=== PATIENT | male | born 1990 | race Two or more races ===

== ENCOUNTER 2018-02-05 07:58 | Emergency (ER) | payer SELFPAY ==
[2018-02-05 08:06] VITALS: BP 107/59; PULSE 57; TEMP 98.9; BMI 23.3
[2018-02-05] MEDS ORDERED: MECLIZINE HCL 25 MG TABLET (FP) PO ONE (08:52)
[2018-02-05] MEDS ORDERED: MECLIZINE HCL 25 MG TABLET (FP) ONE (09:01)
[2018-02-05 09:04] LABS: BASO % 0.8 % (0-2.0); EOS % 5.1 % (0-4.5); HEMATOCRIT 43.4 % (35.4-49); LYMPH % 35.7 % (8-40); MCH 29.6 pg (25.7-33.7); MCHC 34.6 g/dl (32.0-35.9); MEAN CELL VOLUME 85.8 fl (80-96); MEAN PLT VOLUME 7.9 fl (7.5-11.1); MONO % 8.4 % (3.8-10.2); PLATELET COUNT 213 K/MM3 (134-434); RBC 5.06 M/mm3 (4.00-5.60); RDW 13.5 % (11.9-15.9)
--- NOTE | 2018-02-05 09:21 | PDOC ---
History of Present Illness - General Chief Complaint: Headache Stated Complaint: DIZZINESS/HEAD PRESSURE Time Seen by Provider: 02/05/18 08:51 History Source: Patient - History of Present Illness Associated Symptoms: denies: fever/chills, headaches, nausea/vomiting, seizure, weakness Past History - Past Medical History Allergies/Adverse Reactions: Allergies Allergy/AdvReac Type Severity Reaction Status Date / Time No Known Allergies Allergy Verified 02/05/18 08:02 Home Medications: Ambulatory Orders Meclizine HCl 25 mg PO Q8H #15 tablet 02/05/18 COPD: No DVT: No Dementia: No Psychiatric Problems: Yes (anxiety) - Immunization History Immunization Up to Date: Yes - Suicide/Smoking/Psychosocial Hx Smoking History: Never smoked Information on smoking cessation initiated: No Hx Alcohol Use: No Drug/Substance Use Hx: No Substance Use Type: None Review of Systems - Review of Systems Constitutional: No: Chills, Fever HEENTM: No: Blurred Vision Neurological: Yes: Dizziness. No: Headache, Numbness, Tingling, Weakness *Physical Exam - Vital Signs Last Vital Signs Temp Pulse Resp BP Pulse Ox 98.9 F 57 L 16 107/59 98 02/05/18 08:02 02/05/18 08:02 02/05/18 08:02 02/05/18 08:02 02/05/18 08:02 - Physical Exam General Appearance: Yes: Appropriately Dressed. No: Apparent Distress HEENT: positive: Normal Voice Neck: positive: Supple Respiratory/Chest: positive: Lungs Clear, Normal Breath Sounds. negative: Respiratory Distress Cardiovascular: positive: Regular Rate, S1, S2 Integumentary: positive: Dry, Warm Neurologic: positive: model maker scale II-XII NML intact (no nystagmus, no drift, no ataxia, She intact), Fully Oriented, Alert, Normal Mood/Affect, Motor Strength 5/5, Finger to Nose. negative: Disoriented ED Treatment Course - LABORATORY CBC & Chemistry Diagram: 02/05/18 09:00 02/05/18 09:00 - ADDITIONAL ORDERS Additional order review: 02/05/18 09:00 RBC 5.06 MCV 85.8 MCHC 34.6 RDW 13.5 MPV 7.9 Neutrophils % 50.0 Lymphocytes % 35.7 Monocytes % 8.4 Eosinophils % 5.1 H Basophils % 0.8 - Medications Given in the ED: ED Medications Discontinued Medications Generic Name Dose Route Start Last Admin Trade Name Juan PRN Reason Stop Dose Admin Meclizine HCl 25 mg 02/05/18 08:52 02/05/18 09:02 Antivert - PO 02/05/18 08:53 25 mg ONCE ONE Administration Medical Decision Making - Medical Decision Making 02/05/18 09:18 27-year-old male, no significant history here with dizziness. Per patient develop intense spinning sensation with head movement and when changing positions that has been intermittent 2 weeks. No headache, visual changes, nausea, vomiting, tinnitus, focal weakness, chest pain or shortness of breath. No recent URI. No history of similar episode. No new drugs or other inciting agents. No sig family history See exam Possible benign vertigo Stable and alert w/ no neuro deficit -labs -meclizine -reassess 02/05/18 10:12 Labs unremarkable. Patient reports feeling better with meclizine. States he was able to walk to his car without feeling dizzy. As per discussion with Dr. Ruvalcaba will contact Dr. Spain of neurology for further recommendations/follow up 02/05/18 10:[address] Spain, who took patient's information and states he will be calling patient for an appointment in the near future. Patient feels comfortable with plan and feels well enough to be discharged. Rx for small dose of meclizine given per discussion with neurology *DC/Admit/Observation/Transfer Diagnosis at time of Disposition: Dizziness - Discharge Dispostion Disposition: HOME Condition at time of disposition: Improved - Prescriptions Prescriptions: Meclizine HCl 25 mg PO Q8H #15 tablet - Referrals Referrals: Maria Isabel Escobar [Primary Care Provider] - Cheikh Spain MD [Staff Physician] - - Patient Instructions Printed Discharge Instructions: Vertigo Additional Instructions: The cause of your dizziness is unclear at this time and you will need further evaluation by a neurologist. Dr. Spain, who is a neurologist here at [facility], will call you in the next several days to schedule an appointment. In the meantime, take meclizine as directed. If symptoms worsen, return to the ED - Post Discharge Activity
[2018-02-05 09:35] LABS: URINE APPEARANCE CLEAR; URINE BILIRUBIN NEGATIVE (<2.0 mg/dL); URINE COLOR LTYELLOW; URINE GLUCOSE (UA) NEGATIVE (NEGATIVE); URINE KETONE NEGATIVE (NEGATIVE); URINE LEUK ESTERASE NEGATIVE (NEGATIVE); URINE NITRITE NEGATIVE (NEGATIVE); URINE PROTEIN NEGATIVE (NEGATIVE); URINE UROBILINOGEN NEGATIVE mg/dL (0.2-1.0)
[2018-02-05 09:39] LABS: CHLORIDE 109 mmol/L (98-107); POTASSIUM 4.5 mmol/L (3.5-5.1); SODIUM 141 mmol/L (136-145)
[2018-02-05 09:53] LABS: ALBUMIN 4.2 g/dl (3.4-5.0); ALK PHOS 60 U/L (45-117); ANION GAP 9 (8-16); BILIRUBIN,TOTAL 0.3 mg/dL (0.2-1.0); BLOOD UREA NITROGEN 11 mg/dL (7-18); CALCIUM 8.9 mg/dL (8.5-10.1); CO2 23 mmol/L (21-32); CREATININE 0.9 mg/dL (0.7-1.3); GLUCOSE,RANDOM 117 mg/dL (74-106); SGOT/AST 15 U/L (15-37); SGPT/ALT 30 U/L (12-78); TOT PROT 7.4 g/dl (6.4-8.2)
== END 2018-02-05 10:40 | disposition home or self-care (01) ==
LOC: JERFT 07:58
DX: R42 Dizziness and giddiness (principal)
CPT/HCPCS: 36415; 80053; 81003; 85025; 99281-25

== ENCOUNTER 2018-03-22 07:47 | Emergency (ER) | payer OTHER ==
[2018-03-22 08:17] VITALS: BMI 23.8
[2018-03-22] MEDS ORDERED: SODIUM CHLORIDE 1,000 ML IV ONE (09:28)
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
[2018-03-22 09:46] LABS: BASO % 1.1 % (0-2.0); EOS % 5.1 % (0-4.5); HEMOGLOBIN 15.1 GM/dL (11.7-16.9); LYMPH % 33.4 % (8-40); MCH 28.9 pg (25.7-33.7); MCHC 33.4 g/dl (32.0-35.9); MEAN CELL VOLUME 86.4 fl (80-96); MEAN PLT VOLUME 8.2 fl (7.5-11.1); MONO % 7.9 % (3.8-10.2); NEUT % 52.5 % (42.8-82.8); PLATELET COUNT 218 K/MM3 (134-434); RBC 5.21 M/mm3 (4.00-5.60); RDW 13.8 % (11.9-15.9); WHITE BLOOD COUNT 5.7 K/mm3 (4.0-10.0)
[2018-03-22 10:00] LABS: URINE APPEARANCE CLEAR; URINE BILIRUBIN NEGATIVE (<2.0 mg/dL); URINE COLOR YELLOW; URINE GLUCOSE (UA) NEGATIVE (NEGATIVE); URINE KETONE NEGATIVE (NEGATIVE); URINE LEUK ESTERASE NEGATIVE (NEGATIVE); URINE NITRITE NEGATIVE (NEGATIVE); URINE PROTEIN NEGATIVE (NEGATIVE)
[2018-03-22 11:28] VITALS: BP 121/72; PULSE 60; TEMP 98.3
== END 2018-03-22 11:38 | disposition home or self-care (01) ==
LOC: JER 07:47
PROC: 3E0337Z Introduction of Electrolytic and Water Balance Substance into Peripheral Vein, Percutaneous Approach (ICD-10-PCS; principal; 2018-03-22)
DX: R19.8 Other specified symptoms and signs involving the digestive system and abdomen (principal); J45.909 Unspecified asthma, uncomplicated; F41.9 Anxiety disorder, unspecified
CPT/HCPCS: 36415; 81003; 85025; 99282-25; J7030

== ENCOUNTER → 2018-07-16 | Emergency (ER) | payer OTHER ==
[~2018-07-16] MED LIST: CYCLOBENZAPRINE HCL 10 MG TABLET (FP) ONE; CYCLOBENZAPRINE HCL 10 MG TABLET (FP) PO ONE; CYCLOBENZAPRINE HCL 5 MG TABLET PO ONE; KETOROLAC TROMETHAMINE 30 MG/1 ML VIAL IM ONE; KETOROLAC TROMETHAMINE 30 MG/1 ML VIAL ONE
[2018-07-16 22:43] VITALS: BP 119/79; PULSE 92; TEMP 98.2; BMI 23.8
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
== END | disposition left against medical advice (07) ==
LOC: JER 22:40
DX: S39.012A Strain of muscle, fascia and tendon of lower back, initial encounter (principal); V43.51XA Car driver injured in collision with sport utility vehicle in traffic accident, initial encounter; Y92.414 Local residential or business street as the place of occurrence of the external cause; Y93.89 Activity, other specified; Y99.8 Other external cause status
CPT/HCPCS: 99281-25